=== PATIENT | male | born 1995 | race Caucasian/White ===

== ENCOUNTER 2020-01-29 12:35 | Emergency (ER) | payer MEDICAID ==
[~2020-01-29] VITALS: Ht 180.3 cm; Wt 68.8 kg
[~2020-01-29 12:35] MED LIST: RANI150C4 PO
[2020-01-29 13:50] LABS: BASOPHILS # (AUTO) 0.1 X10'3 (0-0.2); BASOPHILS % (AUTO) 1.3 % (0-1); EOSINOPHILS # (AUTO) 0.4 X10'3 (0-0.9); EOSINOPHILS % (AUTO) 5.3 % (0-6); HEMATOCRIT 41.2 % (42.0-52.0); LYMPHOCYTES # (AUTO) 2.1 X10'3 (1.1-4.8); LYMPHOCYTES % (AUTO) 26.8 % (21-51); MEAN CORPUSCULAR HEMOGLOBIN 30.5 PG (27.0-31.0); MEAN CORPUSCULAR HGB CONC 33.8 g/dL (33.0-36.5); MEAN CORPUSCULAR VOLUME 90.3 FL (78-98); MEAN PLATELET VOLUME 7.9 FL (7.4-10.4); MONOCYTES # (AUTO) 0.7 X10'3 (0-0.9); MONOCYTES % (AUTO) 8.5 % (2-12); NEUTROPHILS # (AUTO) 4.5 X10'3 (1.8-7.7); NEUTROPHILS % (AUTO) 58.1 % (42-75); PLATELET COUNT 229 X10'3 (140-440); RED BLOOD COUNT 4.57 X10'6 (4.70-6.10); RED CELL DISTRIBUTION WIDTH 13.1 % (11.5-14.5); WHITE BLOOD COUNT 7.7 X10'3 (4.5-11.0)
[2020-01-29 14:15] LABS: CLARITY,URINE SLIGHTLY CLOUDY (Clear); COLOR,URINE YELLOW (Yellow); GLUCOSE, URINE NEGATIVE (Neg); KETONES,URINE NEGATIVE (Neg); LEUKOCYTE ESTERASE ,URINE NEGATIVE (Neg); NITRITES, URINE NEGATIVE (Neg); OCCULT BLOOD,URINE NEGATIVE (Neg); PH,URINE 8.5 (4.8-8.0); PROTEIN,URINE NEGATIVE (Neg); UROBILINOGEN,URINE 0.2 E.U/dL (0.2-1.0)
[2020-01-29 14:16] LABS: ALANINE AMINOTRANSFERASE 30 U/L (12-78); ALBUMIN 4.4 G/DL (3.4-5.0); ALBUMIN/GLOBULIN RATIO 1.4 (1.1-1.5); ALKALINE PHOSPHATASE 75 IU/L (46-116); ANION GAP 9 (8-16); ASPARTATE AMINO TRANSFERASE 22 U/L (10-37); BILIRUBIN,TOTAL 0.3 MG/DL (0.1-1.0); BLOOD UREA NITROGEN 13 MG/DL (7-18); BUN/CREATININE RATIO 14.4 (5.4-32.0); CALCIUM 8.8 MG/DL (8.5-10.1); CHLORIDE 106 MMOL/L (99-107); GLUCOSE 96 MG/DL (70-104); POTASSIUM 4.4 MMOL/L (3.5-5.1); SODIUM 143 MMOL/L (135-145); TOTAL CARBON DIOXIDE 28.4 MMOL/L (24-32); TOTAL PROTEIN 7.5 G/DL (6.4-8.2); eGFR > 90 ML/MIN
[2020-01-29 14:20] LABS: URINE AMPHETAMINE SCREEN NEGATIVE (Neg); URINE BARBITUATE SCREEN NEGATIVE (Neg); URINE BENZODIAZEPINES SCREEN NEGATIVE (Neg); URINE CANNABINOID SCREEN POSITIVE (Neg); URINE COCAINE SCREEN NEGATIVE (Neg); URINE METHADONE SCREEN NEGATIVE (Neg); URINE OPIATE SCREEN NEGATIVE (Neg); URINE PHENCYCLIDINE SCREEN NEGATIVE (Neg)
[2020-01-29 14:23] LABS: UA COLLECTION TYPE CLN CATCH MIDSTREAM
[2020-01-29 14:26] LABS: MUCUS STRANDS FEW /LPF (Neg); SQUAMOUS EPITHELIAL CELL,UR FEW /LPF (FEW)
[2020-01-29 14:27] LABS: WBC,URINE 0-4 /HPF (0-4)
[2020-01-29 14:28] LABS: AMORPHOUS PHOSPHATES 4+; BACTERIA,URINE NONE SEEN /HPF (Neg); RBC,URINE NONE SEEN /HPF (0-2)
[2020-01-29 14:39] LABS: D-DIMER < 0.19 MG/L FEU (0-0.50)
[2020-01-29 16:16] VITALS: BP 121/74
== END 2020-01-29 16:18 | disposition home or self-care (01) ==
LOC: ER 12:35
DX: R55 Syncope and collapse (principal); R00.1 Bradycardia, unspecified; R94.31 Abnormal electrocardiogram [ECG] [EKG]; F12.90 Cannabis use, unspecified, uncomplicated; Z72.89 Other problems related to lifestyle; Z79.899 Other long term (current) drug therapy
CPT/HCPCS: 36415; 80053; 80305; 81001; 82948; 84484; 85025; 85379; 93005; 99284

== ENCOUNTER 2024-03-14 18:19 | Emergency (ER) | payer MEDICAID ==
[~2024-03-14] VITALS: Ht 182.9 cm; Wt 66.3 kg
[2024-03-14] MEDS ORDERED: DOXY-1 PO (21:08)
[2024-03-14] MEDS: DOXYCYCLINE 100MG CAPSULE PO STA (21:18)
[2024-03-14] MEDS: CefTRIAXone 1000mg IM Kit (w/lidocaine diluent) IM STA (21:18)
[2024-03-14 21:49] VITALS: BP 102/64; PULSE 74; RESP 16; TEMP 98.5; O2SAT 97
[2024-03-14 22:04] LABS: HIV ANTIBODY 1&2 RAPID NON-REACTIVE (Neg)
== END 2024-03-14 21:51 | disposition home or self-care (01) ==
LOC: ER 18:19
DX: A64 Unspecified sexually transmitted disease (principal)
CPT/HCPCS: 36415; 86592; 86703; 87491; 87591; 96372; 99283; J0696